=== PATIENT | male | born 1970 | race Caucasian/White ===

== ENCOUNTER → 2020-08-17 | Outpatient (CLI) | payer BC ==
[~2020-08-17] MED LIST: AUGMENTIN 500 M1 TAB PO; BENTYL20 MG PO; CIPRO500 MG PO; COMPAZINE10 MG PO; FLOMAX0.4 MG PO; PERCOCET 325 MG1 TA2 PO; Percocet 325 MG1 TAB PO; VICODIN 5-3001 EACH PO; ZOFRAN4 MG PO
== END | disposition home or self-care (01) ==
LOC: COVID19 11:29
PROVIDERS: ATTEND Internal Medicine Nephrology
DX: U07.1 COVID-19 (principal)

== ENCOUNTER → 2023-11-13 | Outpatient (CLI) | payer OTHER | END | disposition home or self-care (01) | LOC: US 11-07 16:00 | PROVIDERS: ATTEND Internal Medicine Nephrology | DX: N18.31 Chronic kidney disease, stage 3a (principal) ==